=== PATIENT | male | born 1985 ===

== ENCOUNTER 2017-05-20 12:54 | Emergency (ER) | payer OTHER, SELFPAY ==
[2017-05-20 13:17] VITALS: PULSE 86
--- NOTE | 2017-05-20 14:07 | ED PDOC ---
HPI: Male Pain History Per: Patient History/Exam Limitations: no limitations Onset/Duration Of Symptoms: Days, Intermittent Episodes Current Symptoms Are (Timing): Intermittent Episodes Severity: Moderate Pain Scale Rating Of: 7 Ant/Post Bofy Image: 1 - right groin pain 2 - radiates to right back Quality Of Discomfort: Pressure Associated Symptoms: Constipation. denies: Fever, Chills, Nausea, Vomiting, Diarrhea, Chest Pain, Urinary Symptoms Alleviating Factors: Rest Additional Complaint(s): CC: right groin pain HPI: 31 y/o man w/ no PMH presents to ED w/ right groin pain. The patient reports that the pain has been going on for about 8 months consisting of intermittent episodes but today was worse than usual. Patient thought pain was going to go away on its own but has not resolved. Patient describes pain that is squeezing/pressure-like in nature, 6-7/10 in intensity, and radiation to right abdomen and back. Working worsens pain and rest alleviates. The patient takes no medications for pain. Patient had appendectomy in 2013. Patient is sexually active with women only, has had only 1 partner for many years, does not use condoms, and denies history of STDs/STIs. The patient denies headaches , dizziness, vision change, chest pain, SOB, n/v/d, dysuria, and fevers. PMH: none PSH: appendectomy 2013 Fam: parents alive and healthy, 3 brothers all healthy SOC: denies smoking and drugs, drinks socially ROS: negative for 12 points assessed unless otherwise reported in HPI <Sameer Verma - Last Filed: 05/20/17 16:26> <Darcie Phan - Last Filed: 05/20/17 16:34> Time Seen by Provider: 05/20/17 14:05 Chief Complaint (Nursing): Male Genitourinary Supervising Attending Note - Attestation: I have personally seen and examined this patient.: Yes I have fully participated in the care of the patient.: Yes I have reviewed all pertinent clinical information, including history, physical exam and plan: Yes - Notes: Notes:: 31 yo with low back pain radiating to R side of abdomen X 8 months. - labs - CT abd/pelvis <SylvesterDarcie Xavier - Last Filed: 05/20/17 16:34> Past Medical History Vital Signs: Last Vital Signs Temp 99 F 05/20/17 13:14 Pulse 86 05/20/17 13:14 Resp 18 05/20/17 13:14 BP 140/70 05/20/17 13:14 Pulse Ox 96 05/20/17 13:14 - Medical History PMH: Asthma - Surgical History Surgical History: Appendectomy (IN 2010) - Family History Family History: States: No Known Family Hx <Sameer Verma - Last Filed: 05/20/17 16:26> Vital Signs: Last Vital Signs Temp 98.1 F 05/20/17 16:29 Pulse 86 05/20/17 16:29 Resp 20 05/20/17 16:29 BP 127/79 05/20/17 16:29 Pulse Ox 100 05/20/17 16:29 <PhanDarcie sparrow - Last Filed: 05/20/17 16:34> - Home Medications Home Medications: Ambulatory Orders Medication Instructions Recorded Albuterol HFA [Ventolin HFA 90 2 puff IH [id number] #0 puff 06/22/15 mcg/actuation (8 g)] Azithromycin [Zithromax Z-Mj] 250 mg PO DAILY #0 5 06/22/15 Prednisone 20 mg PO DAILY #5 tab 06/22/15 Cyclobenzaprine [Cyclobenzaprine 10 mg PO TID PRN #15 tab 05/20/17 HCl] Naproxen [Naprosyn] 500 mg PO BID PRN #15 tablet 05/20/17 - Allergies Allergies/Adverse Reactions: Allergies Allergy/AdvReac Type Severity Reaction Status Date / Time No Known Allergies Allergy Verified 06/21/15 23:31 Review of Systems ROS Statement: Except As Marked, All Systems Reviewed And Found Negative Constitutional: Negative for: Fever, Chills, Sweats Eyes: Negative for: Pain Cardiovascular: Negative for: Chest Pain, Palpitations, Light Headedness Respiratory: Negative for: Cough, Shortness of Breath, SOB with Exertion, Pleuritic Pain, Wheezing Gastrointestinal: Negative for: Nausea, Vomiting, Abdominal Pain, Diarrhea Genitourinary Male: Negative for: Dysuria Skin: Negative for: Rash Neurological: Negative for: Weakness, Numbness, Headache, Dizziness <Sameer Verma - Last Filed: 05/20/17 16:26> Physical Exam - Physical Exam Appears: Positive for: No Acute Distress Head Exam: Positive for: ATRAUMATIC, NORMOCEPHALIC Skin: Positive for: Normal Color, Warm, Dry Eye Exam: Positive for: Normal appearance, EOMI, PERRL Neck: Positive for: Normal, Supple Cardiovascular/Chest: Positive for: Regular Rate, Rhythm, Chest Non Tender. Negative for: Murmur, Tachycardia Respiratory: Positive for: Normal Breath Sounds. Negative for: Accessory Muscle Use, Rales, Rhonchi, Stridor, Wheezing Pulses-Carotid (L): 2+ Pulses-Carotid (R): 2+ Pulses-Radial (L): 2+ Pulses-Radial (R): 2+ Gastrointestinal/Abdominal: Positive for: Bowel Sounds, Soft. Negative for: Tenderness, Guarding Male Genital Exam: Positive for: normal genitalia, no hernia, bleeding. Negative for: epididymal tenderness, erythema, hernia mass, inguinal tenderness , scrotum tenderness (R), scrotum tenderness (L), testicular tenderness (R), testicular tenderness (L), urethral discharge Back: Negative for: L CVA Tenderness, R CVA Tenderness Neurologic/Psych: Positive for: Alert, Oriented <Sameer Verma - Last Filed: 05/20/17 16:26> - Laboratory Results Result Diagrams: 05/20/17 14:10 05/20/17 14:10 - ECG O2 Sat by Pulse Oximetry: 96 <Sameer Verma - Last Filed: 05/20/17 16:26> - Laboratory Results Result Diagrams: 05/20/17 14:10 05/20/17 14:10 <Darcie Phan - Last Filed: 05/20/17 16:34> Medical Decision Making Medical Decision Makin31 y/o man w/ no PMH presents to ED w/ right groin pain CBC w/ diff: WNL CMP: elevated AST 69, ALT 129 urine dip: WNL UA: neg glucose, proteins, ketones, RBC, nitrates, and leukocyte esterase urine C&S: CT abd and pelvis w/o contrast: no acute abdominal or pelvic disease processes, no acute fracture <Sameer Verma - Last Filed: 05/20/17 16:26> Disposition - Patient ED Disposition Is Patient to be Admitted: No Doctor Will See Patient In The: Office Counseled Patient/Family Regarding: Studies Performed, Diagnosis, Need For Followup - Disposition Disposition: Routine/Home Disposition Time: 16:26 - POA Present On Arrival: None <Sameer Verma - Last Filed: 05/20/17 16:26> <Darcie Phan - Last Filed: 05/20/17 16:34> - Clinical Impression Clinical Impression: Low back pain - Disposition Referrals: [facility] [Outside] Condition: STABLE Prescriptions: Cyclobenzaprine [Cyclobenzaprine HCl] 10 mg PO TID PRN #15 tab PRN Reason: Pain Naproxen [Naprosyn] 500 mg PO BID PRN #15 tablet PRN Reason: Pain, Moderate (4-7) Instructions: Back Pain (ED) Print Language: ISRAELI
[2017-05-20 14:31] LABS: BASO % 0.6 % (0.0-2.0); EOS # 0.2 K/uL (0.0-0.7); EOS % 3.1 % (0.0-4.0); HEMOGLOBIN 15.8 g/dL (12.0-18.0); LYMPH # 2.3 K/uL (1.0-4.3); LYMPH % 28.7 % (20.0-40.0); MEAN CORPUSCULAR HEMOGLOBIN 30.1 pg (27.0-31.0); MEAN CORPUSCULAR HGB CONC 33.8 g/dL (33.0-37.0); MEAN PLATELET VOLUME 9.4 fl (7.2-11.7); MONO # 0.7 K/uL (0.0-0.8); MONO % 8.6 % (0.0-10.0); NEUT # 4.7 K/uL (1.8-7.0); NRBC % 0.1 % (0.0-0.0); RBC 5.27 Mil/uL (4.40-5.90); WHITE BLOOD COUNT 7.9 K/uL (4.8-10.8)
[2017-05-20 14:38] LABS: URINE BILIRUBIN NEGATIVE (NEGATIVE); URINE BLOOD NEGATIVE (NEGATIVE); URINE CLARITY CLEAR (Clear); URINE COLOR YELLOW (YELLOW); URINE GLUCOSE (UA) NEG (Normal); URINE LEUKOCYTE ESTERASE NEG Leu/uL (Negative); URINE NITRATE NEGATIVE (NEGATIVE); URINE PROTEIN NEGATIVE (NEGATIVE); URINE UROBILINOGEN 0.2-1.0 mg/dL (0.2-1.0)
[2017-05-20 15:05] LABS: ALB/GLOB RATIO 1.6 (1.0-2.1); ALT/SGPT 129 U/L (21-72); AST/SGOT 69 U/L (17-59); BLOOD UREA NITROGEN 19 mg/dl (9-20); CALCIUM 9.6 mg/dL (8.4-10.2); GFR AFRICAN-AMERICAN > 60; GFR NON-AFRICAN AMERICAN > 60
--- NOTE | 2017-05-20 16:08 | CT ---
PROCEDURE: CT Abdomen and Pelvis without intravenous contrast HISTORY: right abdominal and groin pain COMPARISON: None. TECHNIQUE: CT scan of the abdomen and pelvis was performed without administration of intravenous or oral contrast. Coronal and sagittal reformatted images were obtained. Radiation dose: Total exam DLP = 833.91 mGy-cm. This CT exam was performed using one or more of the following dose reduction techniques: Automated exposure control, adjustment of the mA and/or kV according to patient size, and/or use of iterative reconstruction technique. FINDINGS: LOWER THORAX: The lung bases are clear. There is a calcified granuloma in the lingula. LIVER: The liver is normal in size and there is diffuse low-attenuation. No gross lesion or ductal dilatation. GALLBLADDER AND BILE DUCTS: There are no calcified gallstones. PANCREAS: The pancreas is normal in size. No ductal dilatation or calcifications. SPLEEN: The spleen is normal in size. ADRENALS: Both adrenal glands are normal in size without discrete nodule. KIDNEYS AND URETERS: Both kidneys are normal in size. There is no hydronephrosis or nephrolithiasis. There is a 7 mm simple cyst in the upper pole of the left kidney. VASCULATURE: No aortic aneurysm. BOWEL: The small bowel loops are normal in caliber. The colon is unremarkable. APPENDIX: Surgically absent. PERITONEUM: No free fluid. No free air. LYMPH NODES: No enlarged lymph nodes. BLADDER: Grossly normal in appearance. REPRODUCTIVE: The prostate gland is normal in size. BONES: No acute fracture. OTHER FINDINGS: There are bilateral small fat containing inguinal hernias, larger on the left IMPRESSION: No acute abdominal or pelvic abnormality. Diffuse decreased density in the liver may reflect hepatic steatosis however parenchymal infectious/ inflammatory etiologies cannot be entirely excluded. Clinical and laboratory correlation is advised.
[2017-05-20 16:29] VITALS: BP 127/79; RESP 20; TEMP 98.1; O2SAT 100
== END 2017-05-20 16:30 | disposition home or self-care (01) ==
LOC: H.ER 12:54
DX: R10.30 Lower abdominal pain, unspecified (principal); M54.5 Low back pain